=== PATIENT | male | born 1995 | race Caucasian/White ===

== ENCOUNTER 2023-06-04 17:46 | Emergency (ER) | payer OTHER, SELFPAY ==
[2023-06-04 17:50] VITALS: BP 147/99; PULSE 84; RESP 18; TEMP 36.6; O2SAT 99; BMI 26.7
--- NOTE | 2023-06-04 17:56 | PC.NURSE ---
pt presents to ED because patient states that he take insulin novolog and lantus and ran out today. patient states he is suppose to get in with a pcp dr. calhoun on june 08 but his appointments keep getting pushed back. patient states he is here for a medication refill but otherwise feels good and has no complaints.
--- NOTE | 2023-06-04 18:22 | ED.GENADUL1 ---
HPI - General Adult General Chief complaint: Recheck/Abnormal Lab/Rx Stated complaint: Refill Medication Time Seen by Provider: 06/04/23 17:56 Source: patient Mode of arrival: walk-in Limitations: no limitations History of Present Illness HPI narrative: Presents emergency room 27-year-old type I diabetic with a chief complaint of needing his insulin refilled. 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 Now has a scheduled appointment for June 08. patient states he had an elevated sugar home ran out today. No other complaints Related Data Allergies Allergy/AdvReac Type Severity Reaction Status Date / Time No Known Drug Allergies Allergy Verified 06/04/23 17:53 Review of Systems ROS Narrative All Systems are negative except as noted/marked.All systems reviewed and otherwise negative Exam Narrative Exam Narrative: Nurses note and vital signs reviewed and patient is not hypoxic. General: The patient appears well and in no apparent distress. Patient is resting comfortably on cart. Skin: Warm, dry, no pallor noted. There is no rash noted. Head: Normocephalic, atraumatic Eye: Normal conjunctiva, no drainage, EOMI. PERRL Ears, Nose, Mouth, and Throat: oral mucosa is moist. Nares patent. Mouth without vesicles. Ear canals patent. Tm's without Erythema Cardiovascular: Regular Rate and Rhythm Respiratory: Patient is in no distress, no accessory muscle use, lungs are clear to auscultation, no wheezing, rales or rhonchi GI: Normal bowel sounds, no tenderness to palpation, no masses appreciated. No rebound, guarding, or rigidity noted. Musculoskeletal: The patient has no evidence of calf tenderness, no pitting edema, symmetrical pulses noted bilaterally Neurological: A&O x4, normal speech Psychiatric: Cooperative Constitutional Vital Signs, click to edit/add: Last Vital Signs Temp 98 F 06/04/23 17:50 Pulse 84 06/04/23 17:50 Resp 18 06/04/23 17:50 BP 147/99 H 06/04/23 17:50 Pulse Ox 99 06/04/23 17:50 O2 Del Method Room Air 06/04/23 17:50 Course Vital Signs Vital signs: Vital Signs Temperature 98 F 06/04/23 17:50 Pulse Rate 84 06/04/23 17:50 Respiratory Rate 18 06/04/23 17:50 Blood Pressure 147/99 H 06/04/23 17:50 Pulse Oximetry 99 06/04/23 17:50 Oxygen Delivery Method Room Air 06/04/23 17:50 Temperature 98 F 06/04/23 17:50 Pulse Rate 84 06/04/23 17:50 Respiratory Rate 18 06/04/23 17:50 Blood Pressure 147/99 H 06/04/23 17:50 Pulse Oximetry 99 06/04/23 17:50 Oxygen Delivery Method Room Air 06/04/23 17:50 Medical Decision Making MDM Narrative Medical decision making narrative: She states she currently ran out of his insulin. Bedside Accu-Chek was two sixty-six today. States he is scheduled to see his new physician on June 08. I will refill his prescription one time of Lantus thirty units morning and thirty units night and NovoLog six units three times a day with meals and a sliding scale of one unit for every forty units above a hundred forty. Patient states this is what his prescription is. He will follow-up with primary care physician. He needed nothing else at this time. Medical Records Medical records reviewed: Yes I reviewed the patient's medical records Lab Data Labs: Lab Results 06/04/23 Range/Units 18:26 POC Glucose 266 H (74-106) mg/dL Discharge Plan Discharge Chief Complaint: Recheck/Abnormal Lab/Rx Clinical Impression: Encounter for medication refill Patient Disposition: Home, Self-Care Time of Disposition Decision: 18:33 Condition: Good Instructions: Medicine Refill (ED) Stand Alone Forms: Portal Instructions Referrals: Physician,Non-Staff, MD [Primary Care Provider] - 1 week
[2023-06-04 18:28] LABS: Glucometer 266 mg/dL (74-106)
== END 2023-06-04 18:39 | disposition home or self-care (01) ==
PROVIDERS: Emergency Provider Emergency Medicine
DX: Z76.0 Encounter for issue of repeat prescription (principal); E10.9 Type 1 diabetes mellitus without complications; Z79.4 Long term (current) use of insulin
CPT/HCPCS: 36415; 36416; 82948; 99283

== ENCOUNTER 2025-07-16 11:49 | Emergency (ER) | payer MEDICAID, SELFPAY ==
[2025-07-16 11:55] VITALS: BP 149/95; PULSE 53; TEMP 37.1; O2SAT 99; BMI 25.8
--- NOTE | 2025-07-16 12:12 | ED_ITS ---
HPI HPI - General Adult General Chief complaint: Dental/Oral Stated complaint: dental pain Time Seen by Provider: 07/16/25 12:03 Source: patient Mode of arrival: walk-in Limitations: no limitations History of Present Illness HPI narrative: Patient is a 29-year-old male that presents with complaints of left-sided upper and lower tooth pain, mostly in his molars for about 3 to 4 weeks now. He knows he has dental caries and cracked teeth but is waiting on his dental insurance card as they will not see him without this. He denies any fever, chills, or night sweats. He has been using Tylenol, Motrin, salt water rinses, and Orajel that are short acting. Related Data Home Medications ?Medication ?Instructions ?Recorded ?Confirmed insulin aspart U-100 100 unit/mL subcut 07/16/25 (3 mL) subcutaneous pen Previous Rx's ?Medication ?Instructions ?Recorded amoxicillin 875 mg-potassium 1 tab PO BID 7 days #14 t abs 07/16/25 clavulanate 125 mg tablet chlorhexidine gluconate 0.12 % 15 ml buccal BID 7 days #300 mL 07/16/25 mouthwash (Peridex) ibuprofen 800 mg tablet 800 mg PO Q6H PRN pain #20 t abs 07/16/25 Allergies Allergy/AdvReac Type Severity Reaction Status Date / Time No Known Drug Allergies Allergy Verified 07/16/25 11:59 Opioid HPI Opioid Management Most Recent Opioid Data: Last Pain Scale 8 Today, 12:41 Last MAR Pain Assessment Today, 12:41 Review of Systems ROS Status of ROS 10 or more systems reviewed and unremark able except as noted in history and below PFSH PFSH Social History Little interest or pleasure in doing things: not at all Feeling down, depressed, or hopeless: not at all Exam Narrative Exam Narrative: General: No distress, age-appropriate Skin: Warm, dry, no pallor. No rash. Head: Normocephalic, atraumatic. Neck: Supple, non-tender. Eye: Pupils are equal, round and EOMI. No scleral icterus. Ears, Nose, Mouth, and Throat: No nasal mucosal hypertrophy. Oral mucosa is moist, no posterior oropharynx erythema, uvula is mid-line. Poor dentition noted with visible dental caries and cracked molars on the left upper and lower jaw. No gingival abscess, fluctuance, or purulent drainage appreciated. No facial swelling or erythema. No trismus. Cardiovascular: Regular Rate and Rhythm without murmur, gallop or rub. Respiratory: No accessory muscle use or respiratory distress. Musculoskeletal: Full ROM of all extremities, no calf or popliteal tenderness Neurological: A&O x4. No cranial nerve dysfunction observed. No truncal ataxia. Moves all extremities. Sensation intact. Psychiatric: Cooperative and interactive. Normal mood and affect. Constitutional Vital Signs, click to edit/add: Last Vital Signs Temp 98.7 F 07/16/25 11:55 Pulse 53 L 07/16/25 11:55 Resp 14 07/16/25 11:55 BP 149/95 H 07/16/25 11:55 Pulse Ox 99 07/16/25 11:55 Documenting provider has reviewed patient's vital signs: yes Course Vital Signs Vital signs: Vital Signs Temperature 98.7 F 07/16/25 11:55 Pulse Rate 53 L 07/16/25 11:55 Respiratory Rate 14 07/16/25 11:55 Blood Pressure 149/95 H 07/16/25 11:55 Pulse Oximetry 99 07/16/25 11:55 Temperature 98.7 F 07/16/25 11:55 Pulse Rate 53 L 07/16/25 11:55 Respiratory Rate 14 07/16/25 11:55 Blood Pressure 149/95 H 07/16/25 11:55 Pulse Oximetry 99 07/16/25 11:55 Medical Decision Making MDM Narrative Medical decision making narrative: The patient is a 29-year-old male presenting with a 3?4 week history of left- sided upper and lower dental pain. History and physical exam are consistent with dental caries and cracked teeth without evidence of facial cellulitis, abscess, or systemic infection. The patient is afebrile, hemodynamically stable, and denies fever, chills, trismus, dysphagia, or swelling. Given prolonged symptoms and poor dentition with concern for early odontogenic infection, the patient was treated symptomatically in the ED with dental anesthesia and ketorolac 30 mg IM with improvement in pain. Prophylactic antibiotics (Augmentin 875mg BID x 7 days), Ibuprofen 800mg Q6H prn pain, and chlorhexidine oral rinse BID x 7 days were prescribed to reduce risk of progression. Imaging and laboratory studies were considered but not indicated due to absence of red flag findings. The patient was counseled that definitive management requires dental evaluation and treatment and was given strict return precautions for signs of worsening infection. The patient was discharged in stable condition. Differential Diagnosis Differential Diagnosis: Dental caries, pulpitis, early periapical infection, Discharge Plan Discharge Chief Complaint: Dental/Oral Clinical Impression: Dental caries, Toothache Patient Disposition: Home, Self-Care Time of Disposition Decision: 12:21 Condition: Good Mode of Transportation: Private Vehicle Prescriptions / Home Meds: New amoxicillin-pot clavulanate 875-125 mg tablet 1 tab PO BID 7 Days Qty: 14 0RF ibuprofen 800 mg tablet 800 mg PO Q6H PRN (Reason: pain) Qty: 20 0RF chlorhexidine gluconate [Peridex] 0.12 % mouthwash 15 ml buccal BID 7 Days Qty: 300 0RF No Action insulin aspart U-100 100 unit/mL (3 mL) insulin pen SUBCUT Print Language: Faroese Instructions: Toothache (ED) Additional Instructions: Medications: Pain Control: * Ibuprofen 800 mg every 6?8 hours as needed for pain * Acetaminophen 650?1000 mg every 6?8 hours as needed for pain * Do not exceed 3,000?4,000 mg/day of acetaminophen (depending on institutional policy) Antibiotic: * Take the prescribed antibiotic exactly as directed and complete the full co urse, even if symptoms improve. Mouth Rinse: * Peridex (chlorhexidine 0.12%): Swish 15 mL for 30 seconds and spit twice daily * Do not swallow * Do not eat or drink for 30 minutes after use Home Care Instructions: * Continue salt water rinses * Avoid chewing on the affected side * Avoid very hot, cold, or sugary foods * Maintain good oral hygiene but brush gently around painful areas Follow-Up: * See a dentist as soon as possible for definitive treatment (filling, root canal, or extraction) * If unable to obtain dental care, consider low-cost or emergency dental clinics Return to the ER Immediately If You Develop: * Fever or chills * Facial or jaw swelling * Worsening pain not controlled with medications * Difficulty opening your mouth (trismus) * Trouble swallowing or breathing Referrals: Physician,Non-Staff, MD [Primary Care Provider] - 1 week Discharge Date/Time: 07/16/25 12:48
[2025-07-16] MEDS: KETOROLAC TROMETHAMINE 30 MG/ML VIAL IM (12:41)
== END 2025-07-16 12:48 | disposition home or self-care (01) ==
PROVIDERS: Emergency Provider Emergency Medicine
DX: K02.9 Dental caries, unspecified (principal); K08.89 Other specified disorders of teeth and supporting structures
CPT/HCPCS: 96372; 99284; J1885